=== PATIENT | female | born 1965 | race Hispanic/Latino ===

== ENCOUNTER 2018-06-30 11:00 | Outpatient (CLI) | payer MEDICARE | END 2018-06-30 11:01 | disposition home or self-care (01) | LOC: SLR 11:00 | PROVIDERS: ATTEND Otolaryngology | DX: G47.33 Obstructive sleep apnea (adult) (pediatric) (principal); R40.0 Somnolence; R06.83 Snoring | CPT/HCPCS: G0399 ==

== ENCOUNTER 2018-07-23 11:00 | Outpatient (CLI) | payer MEDICARE | END 2018-07-23 11:01 | disposition home or self-care (01) | LOC: SLR 11:00 | PROVIDERS: ATTEND Otolaryngology | DX: G47.33 Obstructive sleep apnea (adult) (pediatric) (principal); G47.31 Primary central sleep apnea | CPT/HCPCS: 95811 ==

== ENCOUNTER 2018-12-02 06:11 | Day surgery (SDC) | payer MEDICARE ==
[2018-12-02] MEDS ORDERED: DIPRIVAN 10 MG/ML IV ONE ×2 (07:19→08:13)
[2018-12-02] MEDS ORDERED: NACL 0.9% 1000 ML 1,000 ML IV SCH (08:00)
[2018-12-02 08:33] VITALS: BP 148/82
--- NOTE | 2018-12-02 10:41 | Anesthesia Day of Surgery ---
Anesthesia Day of Surgery - Day of Surgery Patient Examined: Yes Patient H&P Reviewed: Yes Patient is NPO: Yes Beta Blockers: No Cardiac Clearance: No Pulmonary Clearance: No Rome's Test: N/A
--- NOTE | 2018-12-02 10:42 | Anesthesia Consultation ---
Anesthesia Consult and Med Hx - Airway ROM Head & Neck: Adequate Mental/Hyoid Distance: Adequate Mallampati Class: Class II Intubation Access Assessment: Good - Pulmonary Exam CTA: Yes - Cardiac Exam Cardiac Exam: RRR - Pre-Operative Health Status ASA Pre-Surgery Classification: ASA2 Proposed Anesthetic Plan: General, MAC - Pulmonary Hx Smoking: Yes Hx Sleep Apnea: Yes - Cardiovascular System Hx Hypertension: Yes Hx Heart Murmur: Yes
--- NOTE | 2018-12-02 10:43 | Post Anesthesia Evaluation ---
- Post Anesthesia Evaluation Patient Participated: Yes Airway Patent: Yes Stable Respiratory Function: Yes Nausea/Vomiting: No Temp > 96.8F: Yes Pain Manageable: Yes Adequeate Hydration: Yes Anesthesia Complications: No Block Receding Appropriately: Not Applicable Patient on Ventilator: No
== END 2018-12-02 06:12 | disposition home or self-care (01) ==
LOC: GIO 06:11
PROVIDERS: ATTEND Specialist
DX: K21.0 Gastro-esophageal reflux disease with esophagitis (principal); K44.9 Diaphragmatic hernia without obstruction or gangrene; E78.00 Pure hypercholesterolemia, unspecified; I10 Essential (primary) hypertension; G47.30 Sleep apnea, unspecified; Z98.84 Bariatric surgery status; Z87.891 Personal history of nicotine dependence; Z79.899 Other long term (current) drug therapy; Z98.890 Other specified postprocedural states
CPT/HCPCS: 43235; J2704; J7030

== ENCOUNTER 2018-12-23 05:55 | Inpatient (IN) | payer MEDICARE ==
--- NOTE | 2018-12-22 11:02 | Anesthesia Consultation ---
Anesthesia Consult and Med Hx Date of service: 12/22/18 - Airway Anesthetic Teeth Evaluation: Good ROM Head & Neck: Adequate Mental/Hyoid Distance: Adequate Mallampati Class: Class II Intubation Access Assessment: Good - Pulmonary Exam CTA: Yes - Cardiac Exam Cardiac Exam: RRR - Pre-Operative Health Status ASA Pre-Surgery Classification: ASA2 Proposed Anesthetic Plan: General - Pulmonary Hx Smoking: Yes (Former) Hx Sleep Apnea: Yes - Cardiovascular System Hx Hypertension: Yes (x1 year) Hx Heart Murmur: Yes - Central Nervous System Hx Psychiatric Problems: No - Other Systems Hx Alcohol Use: Yes (Occas) Hx Cancer: No
[~2018-12-23 05:55] MED LIST: ANCEF/STERILE WATER 2 GM/20 ML 2 GM/20 ML SYRINGE IV NR; APRESOLINE IV PRN; FLAGYL 500 MG/100 ML 500 MG/100 ML BAG IV NR; MYLICON PO PRN; REGLAN IV PRN; ZOFRAN IV PRN
[2018-12-23] MEDS ORDERED: FLAGYL 500 MG/100 ML 500 MG/100 ML BAG IV NR (06:00)
[2018-12-23] MEDS ORDERED: ANCEF/STERILE WATER 2 GM/20 ML 2 GM/20 ML SYRINGE IV NR (06:00)
[2018-12-23] MEDS ORDERED: MARCAINE-EPI 0.5%-1:200,000 INFILTRATI ONE ×2 (06:52→08:33)
[2018-12-23] MEDS ORDERED: XYLOCAINE 1% 20 mL ONE (06:52)
[2018-12-23] MEDS ORDERED: TRANSDERM-SCOP TD SCH (07:00)
[2018-12-23] MEDS: LACTATED RINGERS 1,000 ML IV SCH ×3 (07:05→18:25)
[2018-12-23 07:24] LABS: Bilirubin,Urine NEG (Negative); Blood,Urine NEG (Negative); Color,Urine Yellow (Yellow); Mucus,Urine 1+ /HPF; Protein,Urine <15 mg/dL mg/dL (Negative); Urobilinogen,Urine < 2.0 mg/dL (<2.0)
[2018-12-23] MEDS ORDERED: DIPRIVAN 10 MG/ML IV ONE (07:28)
[2018-12-23] MEDS ORDERED: XYLOCAINE MPF 2% ONE (07:28)
[2018-12-23] MEDS ORDERED: ZEMURON IV ONE (07:28)
[2018-12-23] MEDS ORDERED: SUBLIMAZE ONE (07:28)
[2018-12-23] MEDS ORDERED: LOVENOX SUB-Q NR (07:30)
--- NOTE | 2018-12-23 07:33 | Anesthesia Day of Surgery ---
Anesthesia Day of Surgery - Day of Surgery Patient Examined: Yes Patient H&P Reviewed: Yes Patient is NPO: Yes
[2018-12-23] MEDS ORDERED: ROBINUL ONE (07:34)
[2018-12-23] MEDS ORDERED: BLOXIVERZ ONE (07:34)
[2018-12-23] MEDS ORDERED: DECADRON ONE (07:34)
[2018-12-23] MEDS ORDERED: ZOFRAN ONE (07:34)
[2018-12-23] MEDS ORDERED: QUELICIN ONE (07:34)
[2018-12-23] MEDS ORDERED: XYLOCAINE 1% 20 mL INFILTRATI ONE (08:33)
[2018-12-23] MEDS ORDERED: NACL 0.9% IR ONE ×2 (08:34)
[2018-12-23] MEDS: TORADOL IV SCH ×2 (10:05→18:23)
[2018-12-23] MEDS ORDERED: DILAUDID IV PRN (10:06)
[2018-12-23 11:47] LABS: Basophils % (Auto) 0.3 % (0.0-1.8); Eosinophils % (Auto) 0.3 % (0.0-4.3); Hematocrit 38.2 % (30.3-42.9); Hemoglobin 12.7 gm/dl (10.1-14.3); Lymphocytes # (Auto) 1.4 K/mm3 (1.2-5.4); Lymphocytes % (Auto) 12.8 % (13.4-35.0); Mean Corpuscular HGB Conc 33 % (30-34); Mean Corpuscular Volume 91 fl (79-97); Monocytes # (Auto) 0.2 K/mm3 (0.0-0.8); Monocytes % (Auto) 1.6 % (0.0-7.3); Platelet Count 156 K/mm3 (140-440); Red Cell Distribution Width 15.1 % (13.2-15.2)
[2018-12-23 12:11] LABS: Alanine Aminotransferase 25 units/L (7-56); Albumin 3.4 g/dL (3.9-5); BUN/Creatinine Ratio 21; Blood Urea Nitrogen 17 mg/dL (7-17); Calcium 8.5 mg/dL (8.4-10.2); Hemolysis Index 6
[2018-12-23] MEDS: DILAUDID IV PRN ×2 (15:22→23:32)
[2018-12-24] MEDS: LACTATED RINGERS 1,000 ML IV SCH ×2 (01:33→08:21)
[2018-12-24] MEDS: TORADOL IV SCH ×3 (01:35→13:34)
[2018-12-24] MEDS ORDERED: LOVENOX SUB-Q SCH (10:00)
[2018-12-24 11:35] LABS: Basophils % (Auto) 0.2 % (0.0-1.8); Eosinophils % (Auto) 0.1 % (0.0-4.3); Lymphocytes # (Auto) 1.8 K/mm3 (1.2-5.4); Lymphocytes % (Auto) 17.5 % (13.4-35.0); Mean Corpuscular HGB Conc 33 % (30-34); Mean Corpuscular Volume 90 fl (79-97); Monocytes # (Auto) 0.4 K/mm3 (0.0-0.8); Monocytes % (Auto) 4.3 % (0.0-7.3); Platelet Count 154 K/mm3 (140-440); Red Blood Count 3.99 M/mm3 (3.65-5.03); Red Cell Distribution Width 14.5 % (13.2-15.2)
[2018-12-24 11:53] LABS: Alanine Aminotransferase 18 units/L (7-56); Albumin 3.3 g/dL (3.9-5); BUN/Creatinine Ratio 18; Blood Urea Nitrogen 14 mg/dL (7-17); Calcium 8.6 mg/dL (8.4-10.2); Hemolysis Index 6
--- NOTE | 2018-12-24 12:31 | Discharge Summary ---
Providers - Providers Date of Admission: 12/23/18 05:55 Date of discharge: 12/24/18 Attending physician: BENJAMÍN NOVA 12/22/18 21:52 Physical Therapy Evaluation and Treat [CONS] Routine Comment: Reason For Exam: ambulation Primary care physician: ROSA BOWMAN Hospitalization Condition: Good Disposition: DC-01 TO HOME OR SELFCARE Core Measure Documentation - Palliative Care Palliative Care/ Comfort Measures: Not Applicable - Core Measures Any of the following diagnoses?: none Exam - Constitutional Vitals: Temp Pulse Resp BP Pulse Ox 98.0 F 69 20 137/73 98 12/24/18 06:58 12/24/18 06:58 12/24/18 06:58 12/24/18 06:58 12/24/18 06:58 General appearance: Present: no acute distress, well-nourished - EENT Eyes: Present: PERRL, EOM intact ENT: hearing intact, clear oral mucosa, dentition normal - Respiratory Respiratory: bilateral: CTA - Cardiovascular Rhythm: regular - Extremities Extremities: no ischemia, pulses intact, pulses symmetrical, No edema, normal temperature, normal color, Full ROM Peripheral Pulses: within normal limits - Abdominal General gastrointestinal: Present: soft, non-tender - Rectal Rectal Exam: deferred - Integumentary Integumentary: Present: clear, warm, dry - Musculoskeletal Musculoskeletal: strength equal bilaterally - Psychiatric Psychiatric: appropriate mood/affect Plan Activity: no restrictions Weight Bearing Status: Full Weight Bearing Diet: other (bariatric) Wound: keep clean and dry Follow up with: ROSA BOWMAN MD [Primary Care Provider] - 7 Days BENJAMÍN NOVA MD [Staff Physician] - 14 Days
[2018-12-24 12:49] VITALS: BP 129/77
[2018-12-24] MEDS: DILAUDID IV PRN (13:33)
== END 2018-12-24 17:08 | disposition home or self-care (01) | DRG 621 ==
LOC: 3A 05:55 → 3B-SURG 09:59
PROVIDERS: ADMIT Specialist; ATTEND Specialist
PROC: 0DB64Z3 Excision of Stomach, Percutaneous Endoscopic Approach, Vertical (ICD-10-PCS; principal; 2018-12-23)
PROC: 0BQT4ZZ Repair Diaphragm, Percutaneous Endoscopic Approach (ICD-10-PCS; 2018-12-23)
DX: E66.01 Morbid (severe) obesity due to excess calories (principal); I10 Essential (primary) hypertension; G47.30 Sleep apnea, unspecified; E78.5 Hyperlipidemia, unspecified; E78.00 Pure hypercholesterolemia, unspecified; K21.9 Gastro-esophageal reflux disease without esophagitis; K44.9 Diaphragmatic hernia without obstruction or gangrene; Z83.6 Family history of other diseases of the respiratory system; Z68.41 Body mass index [BMI] 40.0-44.9, adult; Z72.89 Other problems related to lifestyle; Z87.891 Personal history of nicotine dependence
CPT/HCPCS: 36415; 80053; 81001; 85025; 88307; G0378; A4217; J0330; J0690; J1100; J1170; J1650; J1885; J2405; J2704; J2710; J2765; J3010; J7120